=== PATIENT | male | born 1965 | race Caucasian/White ===

== ENCOUNTER 2019-01-09 15:21 | Outpatient (CLI) | payer BC ==
--- NOTE | 2019-01-09 16:24 | ULT ---
LEFT LOWER EXTREMITY DOPPLER VENOUS ULTRASOUND: 01/09/19 INDICATION: Concern for hematoma versus DVT of the left lower extremity. CPT: 70131 ICD-10-PCS: B54D TECHNIQUE: Color flow Doppler, spectral waveform analysis of pulsed Doppler, and nieto-scale imaging with david franco and augmentation, were used to evaluate the left common femoral, femoral, popliteal, posterior t ibial, and superficial femoral, veins; and the proximal portions of the profunda femoral and greater saphenous, veins. Additional nieto scale color Doppler images were obtained of the region of pain stephy g the left inner mid-thigh. FINDINGS: There is normal compression, flow and augmentation seen within the deep venous structures of the left lower extremity. Within the region of interest there is a thin linear hypoechoic structure with surrounding inflammato ry stranding that is symptomatic to the patient. There is limited compression of this tubular structu re with very diminished internal flow seen on the spectral Doppler images. IMPRESSION: 1. No evidence of DVT within the left lower extremity. 2. Findings suspicious for a superficial venous thrombosis of the medial left inner thigh in the region of pain. POS: OFF
== END 2019-01-09 15:22 | disposition home or self-care (01) ==
LOC: BICULT 15:21
PROVIDERS: ATTEND Family Medicine
DX: S75.8 Injury of other blood vessels at hip and thigh level (principal)